=== PATIENT | female | born 1975 | race Caucasian/White ===

== ENCOUNTER 2016-12-12 13:50 | Emergency (ER) | payer BC ==
[~2016-12-12] VITALS: Ht 165.1 cm; Wt 43.2 kg
[~2016-12-12 13:50] MED LIST: CITA10TA49 PO; CYAN1TAB46 PO; DOXY-124 PO; LORA-358 PO; MULTIVITAMIN IV; PANT40TA25 PO; [UNRECOGNIZED DRUG - OTHER] IV
[2016-12-12 13:52] VITALS: TEMP 98.8; Ht 165.1 cm; Wt 43.2 kg
--- OUTSIDE RECORDS SUMMARY | 2016-12-12 13:55 | XMS REPORT | Referral Summary ---
Author Author [facility] Organization [facility] Address Unknown Phone Unavailable Care Team Providers Care Tongsman Name Role Phone Ninfa Campos Primary Care Physician [phone] Encounter VC Date(s): 07/25/16 - 07/25/16 [facility] [address] [place] [address] [place]AKR[place] Baker [id number]- Discharge Diagnosis: Ventral hernia Discharge Disposition: 01-Home or Self Care Attending Physician: Peter Martines MD Admitting Physician: Peter Martines MD Referring Physician: Anne-Marie Campos DO Vital Signs Most recent to 1 oldest [Reference Range]: Temperature Tympanic 37 degC [36.6-38.1 degC] (07/25/16 11:38 AM) Peripheral Pulse 75 bpm Rate [60-100 bpm] (07/25/16 11:38 AM) Blood Pressure 90/56 mmHg [90-140/60-90 mmHg] (07/25/16 11:38 AM) SpO2 98 % (07/25/16 11:38 AM) Problem List Condition Effective Dates Status Health Status Informant Allergies(Confirmed) Active Unspecified Active sinusitis (chronic)(Confirmed) Dysphagia(Confirmed) 2013 Active 1 GERD Active (gastroesophageal reflux disease)(Confirmed) Irritable bowel Active disease(Confirmed) Kidney Active disease(Confirmed) Calculus of Active kidney(Confirmed) Pyogenic Active arthritis(Confirmed) Chicken Active pox(Confirmed) 1EGD with biopsies/insertion of power port-2013 Allergies, Adverse Reactions, Alerts Substance Reaction Severity Status ciprofloxacin Active Ciprofloxacin Active Hydrochloride mirtazapine Active Sertraline Hydrochloride Active sulfamethoxazole hives Active trimethoprim hives Active Medications albuterol 2.5 mg/3 mL (0.083%) inhalation solution 2.5 mg 3 mL, Inhalation, q6hr, as needed for wheezing, # 25 Each, 0 Refill(s), Pharmacy: [facility] #[id number], 3 mL Inhalation q6hr,PRN:as needed for wheezing Start Date: 03/16/16 Status: Ordered Diflucan 150 mg oral tablet 150 mg 1 tabs, Oral, Once Start Date: 05/29/16 Status: Ordered loratadine 10 mg oral tablet 10 mg 1 tabs, Oral, Daily, as needed for allergy symptoms, 0 Refill(s) Start Date: 10/11/14 Status: Ordered Minocin 100 mg oral capsule See Instructions, 1 caps Oral three times a week Start Date: 07/24/16 Status: Ordered pantoprazole 40 mg oral delayed release tablet 40 mg 1 tabs, Oral, Daily Start Date: 07/24/16 Status: Ordered Vitamin B12 500 mcg tablet once daily Start Date: 07/24/16 Status: Ordered vitamin infusion vitamin infusion, Monthly iv infusions, 0 Refill(s) Start Date: 03/16/16 Status: Ordered Results No data available for this section Immunizations Vaccine Date Refusal Reason tetanus/diphth/pertuss (Tdap) adult/adol 10/30/07 Procedures Procedure Date Related Diagnosis Body Site EGD with biopsies/insertion of power port1 09/25/13 Insertion of [id number]-o-sgif3 09/25/13 Colonoscopy 2010 Left Renal Lithotripsy 09/28/09 Bilateral tubal ligation 2009 EGD 2009 Cholecystectomy 2007 L RF INJURY 2004 section3 1997 Cystoscopy/Lazer Vaporization Gall Bladder 1PER HX for Dysphagia, poorperipheral iv access 2needing TPN, poor venous access 3and 2009 Social History Social History Type Response Smoking Status Never smoker Assessment and Plan Extracted from: Title: Ambulatory Patient Education Author: Peter Martines MD Date: Bariatrics Ventral Hernia A ventral hernia (also called an incisional hernia) is a hernia that occurs at the site of a previous surgical cut (incision) in the abdomen. The abdominal wall spans from your lower chest down to your pelvis. If the abdominal wall is weakened from a surgical incision, a hernia can occur. A hernia is a bulge of bowel or muscle tissue pushing out on the weakened part of the abdominal wall. Ventral hernias can get bigger from straining or lifting. Obese and older people are at higher risk for a ventral hernia. People who develop infections after surgery or require repeat incisions at the same site on the abdomen are also at increased risk. CAUSES A ventral hernia occurs because of weakness in the abdominal wall at an incision site. SYMPTOMS Common symptoms include: A visible bulge or lump on the abdominal wall. Pain or tenderness around the lump. Increased discomfort if you cough or make a sudden movement. If the hernia has blocked part of the intestine, a serious complication can occur (incarcerated or strangulated hernia). This can become a problem that requires emergency surgery because the blood flow to the blocked intestine may be cut off. Symptoms may include: Feeling sick to your stomach (nauseous). Throwing up (vomiting). Stomach swelling (distention) or bloating. Fever. Rapid heartbeat. DIAGNOSIS Your health care provider will take a medical history and perform a physical exam. Various tests may be ordered, such as: Blood tests. Urine tests. Ultrasonography. X-rays. Computed tomography (CT). TREATMENT Watchful waiting may be all that is needed for a smaller hernia that does not cause symptoms. Your health care provider may recommend the use of a supportive belt (truss) that helps to keep the abdominal wall intact. For larger hernias or those that cause pain, surgery to repair the hernia is usually recommended. If a hernia becomes strangulated, emergency surgery needs to be done right away. HOME CARE INSTRUCTIONS Avoid putting pressure or strain on the abdominal area. Avoid heavy lifting. Use good body positioning for physical tasks. Ask your health care provider about proper body positioning. Use a supportive belt as directed by your health care provider. Maintain a healthy weight. Eat foods that are high in fiber, such as whole grains, fruits, and vegetables. Fiber helps prevent difficult bowel movements (constipation). Drink enough fluids to keep your urine clear or pale yellow. Follow up with your health care provider as directed. SEEK MEDICAL CARE IF: Your hernia seems to be getting larger or more painful. SEEK IMMEDIATE MEDICAL CARE IF: You have abdominal pain that is sudden and sharp. Your pain becomes severe. You have repeated vomiting. You are sweating a lot. You notice a rapid heartbeat. You develop a fever. MAKE SURE YOU: Understand these instructions. Will watch your condition. Will get help right away if you are not doing well or get worse. This information is not intended to replace advice given to you by your health care provider. Make sure you discuss any questions you have with your health care provider. Document Released: 08/12/2013 Document Revised: 09/16/2015 Document Reviewed: [employer] Interactive Patient Education 2016 [employer] No follow up information was provided. Extracted from: Title: Office Visit Note Author: Peter Martines MD Date: 07/25/16 Assessment/Plan 1.Ventral hernia Ordered: Office Visit Level 4 Est 15016 Plan: Patient Given Option of Diagnostic Laparoscopy Versus Continued Observation. Patient Wishes toe to Continue toFollow from Clinical Standpoint. If Reported Ventral Hernia Becomes More Noticeable/Problematic Patient toReturn to Office for Further Evaluation. I did review the patient's chartincludingprior EGD and placement of PowerPort catheterfrom September 25, 2013. Reviewed office note from patient's PCP fromMay 29, 2016. I informed the patient that from a physical examination standpointI was unable to appreciate any evidence for a fascial defect/hernia. I informed the patient that I have had a fewpatients have a very smallhernia/fascial defectthat wasn't able to be appreciated initially upon examination. I informedthe patient that as thin as she Jan would think that if she had a small fascial defect it would benoticeable. Nonetheless herreported clinical history is quite classic fora hernia. I informed the patient that I felt that we had a few options. One option would be to proceed with diagnostic laparoscopy and evaluate heranterior abdominal wall if indeed a small fascial defect is noted than proceed withrepair at that time. The other option is tofollow her from a clinical standpoint and if this hernia began to "pop out more frequently",cause her an element of increasing discomfortthat she should return to the office for further evaluation at that time. Patient opted for continued observation at this time.
--- OUTSIDE RECORDS SUMMARY | 2016-12-12 13:55 | XMS REPORT | Continuity of Care Document ---
Author Author Bina Malloy MD Organization Ambulatory Address [address] [place] [address] [facility] RAMAKRISHNA Butler [address] Phone Care Team Providers Care Motor And Chassis Inspector Name Role Phone Bina Malloy PP Unavailable Payers Payer name Insurance type Covered libertarian ID Authorization(s) Unknown Problems Condition Effective Dates (start - stop) Clinical Status Malnutrition - *Chronic Constipation - *Chronic Abnormal laboratory test - Myalgia and myositis, unspecified - *Chronic Loss of weight - *Chronic Other abnormal clinical findings - Asymptomatic Malnutrition - *Chronic Dehydration - *Chronic Depression - *Chronic Abdominal pain, generalized - *Chronic Pain in joint, site unspecified - *Chronic Conjunctivitis, unspecified - *Acute Malnourished - *Chronic Sinusitis, Acute - *Chronic CHRONIC SINUSITIS NOS - CALCULUS OF KIDNEY - Sinusitis, Acute - *Acute Cough - *Acute Myalgia - *Chronic B12 deficiency - *Chronic Irritable bowel syndrome - *Chronic Autoimmune disease, not elsewhere classified - *Chronic Preventive measure - *Routine Depression - *Acute Nausea - *Chronic Diarrhea - *Acute Family History Family Member Diagnosis Age At Onset Status Maternal grandmother (Unknown) Anemia Yes Father (Unknown) Congestive heart failure Yes Paternal grandfather (Unknown) Cancer - leukemia Yes Brother (Unknown) Anemia Yes Maternal grandmother (Unknown) CAD Yes Sister (Unknown) Psoriasis Yes Father (Unknown) Diabetes Yes Paternal grandmother (Unknown) autoimmune Yes Father (Unknown) CVA (Stroke) Yes Father (Unknown) Hypertension Yes Brother (Unknown) Hyperlipidemia Yes Father (Unknown) Psoriasis Yes Mother (Unknown) Anemia Yes Paternal grandmother (Unknown) CAD Yes Father (Unknown) Hyperlipidemia Yes Sister (Unknown) Anemia Yes Brother (Unknown) Hypertension Yes Family h/o (Unknown) CAD Yes Paternal grandmother (Unknown) CVA (Stroke) Yes Paternal grandmother (Unknown) Congestive heart failure Yes Father (Unknown) autoimmune Yes Social History Social History Element Description Quantity Unknown Allergies, Adverse Reactions, Alerts Substance Reaction Severity Status SULFAMETHOXAZOLE hives Unknown TRIMETHOPRIM hives Unknown CIPROFLOXACIN HCL Unknown MIRTAZAPINE Unknown CIPROFLOXACIN Unknown SERTRALINE HCL Unknown Medications Medication Instructions Dosage Effective Dates (start - stop) Status loratadine 10 mg tablet take 1 tablet (10MG) by oral route as needed May - Active Celexa 10 mg tablet take 1 tablet (10MG) by oral route every day 10 MG Sep - Active Immunizations Vaccine Date Status Comments Unknown Results Test Name Date and Time Measure Units Reference Range Abnormal Flag Comments Panel Description: CBC WBC 10:58:00 4.7 1000/cmm 5.0-10.0 L RBC 10:58:00 3.92 mil/cmm 3.70-5.20 HGB 10:58:00 11.4 g/dL 12.0-16.0 L HCT 10:58:00 34.7 % 37.0-47.0 L MCV 10:58:00 88.5 fL 80.0-96.0 MCH 10:58:00 29.1 pg 26.0-34.0 MCHC 10:58:00 32.9 g/dL 32.0-36.0 RDW 10:58:00 12.7 % 0.0-14.5 PLT 10:58:00 179 1000/cmm 150-400 SEG 10:58:00 58 % 50-70 LYMPH 10:58:00 27 % 20-40 MONO 10:58:00 9 % 4-8 H EOSIN 10:58:00 5 % <6 BASO 10:58:00 0 % <2 Vital Signs Date / Time: Height Weight Pulse Rate Blood Pressure Temperature /10:11:00 64.50 in 95.40 lbs 68 /min 98/60 mm[Hg] 96.3 F Procedures Procedure Date Unknown Encounters Encounter Location Date Patient Visit [facility] Patient Visit [facility] Patient Visit [facility] Patient Visit [facility] Patient Visit [facility] Patient Visit [facility] Patient Visit [facility] Patient Visit [facility] Patient Visit [facility] Patient Visit [facility] Patient Visit [facility] Advance Directives Directive Effective Date Unknown
--- OUTSIDE RECORDS SUMMARY | 2016-12-12 13:55 | XMS REPORT | Continuity of Care Document ---
Author Author [facility] Organization [facility] Address Unknown Phone Unavailable Care Team Providers Care Payroll Tax Specialist Name Role Phone Primary Care Physician Unavailable Source Comments Some departments are not documenting in the electronic medical record. If you do not see the information that you expected, contact Release of Information in the Health Information Management department at [phone] for further assistance in locating additional records.[facility] Active Allergies and Adverse Reactions Allergen Noted Date Severity Reactions Comments Bactrim 03/25/2012 HIVES Floxin 03/25/2012 NAUSEA AND VOMITING Current Medications Prescription Sig. Disp. Refills Start End Date Status Date pantoprazole DR Take 40 mg by mouth Active (PROTONIX) 40 mg tablet daily. ibuprofen (MOTRIN) 200 mg Take 400 mg by mouth Active tablet every 6 hours as needed. Active Problems Problem Noted Date Fatigue 04/07/2012 Weight loss 04/07/2012 Diarrhea 04/07/2012 Speech abnormality 04/07/2012 Elevated blood protein 04/07/2012 Social History Tobacco Use Types Packs/Day Years Used Date Never Smoker Smokeless Tobacco: Never Used Last Filed Vital Signs Vital Sign Reading Time Taken Blood Pressure 95/63 03/25/2012 8:41 AM CDT Pulse 72 03/25/2012 8:41 AM CDT Temperature 36.5 C (97.7 F) 03/25/2012 8:41 AM CDT Respiratory Rate 16 03/25/2012 8:41 AM CDT Height 1.626 m (5' 4") 03/25/2012 8:41 AM CDT Weight 43.727 kg (96 lb 6.4 oz) 03/25/2012 8:41 AM CDT Body Mass Index 16.54 03/25/2012 8:41 AM CDT Oxygen Saturation - - Plan of Care Health Maintenance Due Date Last Done Comments Physical (Comprehensive) 01/07/1980 Exam Pertussis Vaccine 01/07/1984 Tetanus Vaccine 1990 Cervical Cancer Screening 1994 Breast Cancer Screening 2013 Influenza Vaccine 05/10/2017 Results from Last 3 Months Not on file
--- OUTSIDE RECORDS SUMMARY | 2016-12-12 13:55 | XMS REPORT | Referral Summary ---
Author Author [facility], [facility] Care Organization [facility] Address Unknown Phone Unavailable Care Team Providers Care Die Maker Trim Name Role Phone Ninfa Campos Primary Care Physician [phone] Encounter Date(s): 03/16/16 - 03/16/16 [facility], [address] [place] [id number]- Discharge Diagnosis: Acute pansinusitis Discharge Diagnosis: Bronchitis Discharge Disposition: 01-Home or Self Care Attending Physician: Jelani Blake PA-C Admitting Physician: Jelani Blake PA-C Vital Signs Most recent to 1 oldest [Reference Range]: Peripheral Pulse 88 bpm Rate [60-100 bpm] (03/16/16 3:09 PM) Respiratory Rate 18 br/min [14-20 br/min] (03/16/16 3:09 PM) Blood Pressure 102/76 mmHg [90-140/60-90 mmHg] (03/16/16 3:09 PM) SpO2 100 % (03/16/16 3:09 PM) Problem List Condition Effective Dates Status Health Status Informant Allergies(Confirmed) Active Unspecified Active sinusitis (chronic)(Confirmed) Dysphagia(Confirmed) 2013 Active 1 GERD Active (gastroesophageal reflux disease)(Confirmed) Irritable bowel Active disease(Confirmed) Kidney Active disease(Confirmed) Calculus of Active kidney(Confirmed) Pyogenic Active arthritis(Confirmed) Chicken Active pox(Confirmed) 1EGD with biopsies/insertion of power port-2014 Allergies, Adverse Reactions, Alerts Substance Reaction Severity Status ciprofloxacin Active Ciprofloxacin Active Hydrochloride mirtazapine Active Sertraline Hydrochloride Active sulfamethoxazole hives Active trimethoprim hives Active Medications albuterol 2.5 mg/3 mL (0.083%) inhalation solution 2.5 mg 3 mL, Inhalation, q6hr, as needed for wheezing, # 25 Each, 0 Refill(s), Pharmacy: [facility] #[id number], 3 mL Inhalation q6hr,PRN:as needed for wheezing Start Date: 03/16/16 Status: Ordered Augmentin 875 mg-125 mg oral tablet 1 tabs, Oral, q12hr, X 10 days, # 20 tabs, 0 Refill(s), Pharmacy: [facility] #[id number] Start Date: 03/16/16 Stop Date: 03/26/16 Status: Ordered ibuprofen 0 Refill(s) Start Date: 03/16/16 Status: Ordered loratadine 10 mg oral tablet 1 tabs, Oral, Daily, 0 Refill(s) Start Date: 10/11/14 Status: Ordered Tylenol 325 mg oral capsule 0 Refill(s) Start Date: 03/16/16 Status: Ordered Vitamin B12 0 Refill(s) Start Date: 03/16/16 Status: Ordered vitamin infusion vitamin infusion, 0 Refill(s) Start Date: 03/16/16 Status: Ordered Results No data available for this section Immunizations Vaccine Date Refusal Reason tetanus/diphth/pertuss (Tdap) adult/adol 10/30/07 Procedures Procedure Date Related Diagnosis Body Site Left Renal Lithotripsy 09/28/09 Bilateral tubal ligation 2009 EGD 2009 Cholecystectomy 2007 L RF INJURY 2003 section Cystoscopy/Lazer Vaporization EGD with biopsies/insertion of power port1 Gall Bladder 1PER HX for Dysphagia, poorperipheral iv access Social History Social History Type Response Smoking Status Never smoker Assessment and Plan Extracted from: Title: maxillary sinusitis Author: Jelani Blake PA-C Date: 03/16/16 Assessment/Plan Acute pansinusitis Take azithromycin as prescribed Diagnosis and treatment discussed. Recommended [id number] , saline rinses and sinus washes. Patient advised to follow up with PCP in 2-3 days. Patient stable upon discharge, alert and orientated with no apparent distress, and indicated understanding of discharge instructions. Bronchitis Her primary care prescribed and a Ventolin inhaler however she was unable to pick that up be due to cost was not covered by her insurance. Patient has a nebulizer at home, Iprescribed albuterolto be used in the nebulizerevery 4 hours as needed for wheezing. Recommend supportive care. Rest. Practice good hand hygiene. Increase fluids. Patient was given a handout of [id number] medications that were recommended for the patient. Tylenol/ Ibuprofen as needed for fever or pain. FU with PCP if not improving, worsening symptoms, or as needed. Questions were answered. Patient verbalized understanding. Patient left in stable condition. Ordered: albuterol, 2.5 mg, Inhalation, Once, First Dose: 03/16/16 16:00:00 CDT, Stop Date: 03/16/16 16:00:00 CDT Orders: albuterol, 2.5 mg 3 mL, Inhalation, q6hr, as needed for wheezing, # 25 Each, 0 Refill(s), Pharmacy: [facility] #[id number], 3 mL Inhalation q6hr, PRN:as needed for wheezing amoxicillin-clavulanate, 1 tabs, Oral, q12hr, X 10 days, # 20 tabs, 0 Refill(s ), Pharmacy: [facility] #[id number]
--- OUTSIDE RECORDS SUMMARY | 2016-12-12 13:55 | XMS REPORT | Continuity of Care Document ---
Author Author [facility] Organization [facility] Address Unknown Phone Unavailable Allergies Medications Problems Procedures Results Encounters ACCT No. Visit Date/Time Discharge Status Pt. Type Provider Facility Loc./Unit Complaint [id number] 09/29/2013 10:03:00 09/29/2013 23 :59:59 CLS Outpatient
[2016-12-12] MEDS ORDERED: NORMAL SALINE 1,000 ML IV ONE (14:02)
--- OUTSIDE RECORDS SUMMARY | 2016-12-12 14:09 | XMS REPORT | Continuity of Care Document ---
Author Author [facility] Organization [facility] Address Unknown Phone Unavailable Allergies Medications Problems Procedures Results Encounters ACCT No. Visit Date/Time Discharge Status Pt. Type Provider Facility Loc./Unit Complaint [id number] 09/29/2013 10:03:00 09/29/2013 23 :59:59 CLS Outpatient
--- OUTSIDE RECORDS SUMMARY | 2016-12-12 14:09 | XMS REPORT | Continuity of Care Document ---
Author Author [facility] Organization [facility] Address Unknown Phone Unavailable Care Team Providers Care Quality Control Systems Manager Name Role Phone Primary Care Physician Unavailable Source Comments Some departments are not documenting in the electronic medical record. If you do not see the information that you expected, contact Release of Information in the Health Information Management department at [phone] for further assistance in locating additional records.[facility] Active Allergies and Adverse Reactions Allergen Noted [...]
--- NOTE | 2016-12-12 14:16 | DI ---
Indication: ITS.REASON: speech deficit -- stuttering, expressive dyspahsia PROCEDURE: CT HEAD W/O CONTRAST: Encounter: Initial Comparison: None Technique: Axial CT images through the head were performed without contrast. Iterative Reconstruction dose reducing technique was utilized. FINDINGS: The ventricles are of normal size, shape, and configuration for the patient's age. There is no evidence of acute intracranial hemorrhage, midline displacement, or mass effect. The CT attenuation of the brain parenchyma is normal within the cerebellum, brain stem, and cerebral hemispheres. The tympanic cavities and mastoid air cells are free of appreciable disease. There are no definite fractures of the skull base, calvarium, or visualized portion of the midface. IMPRESSION: No CT evidence of acute intracranial abnormality. .
--- NOTE | 2016-12-12 14:28 | ERPDOC ---
Departure Disposition Decision Date: Dec 12, 2016 Disposition Decision Time: 15:50 Disposition: 01 DISCHARGED HOME, SELF-CARE Impression Impression Impression: Primary Impression: Speech abnormality Speech disturbance type: dysarthria Qualified Codes: R47.1 - Dysarthria and anarthria Additional Impression: Headache Headache type: other complicated headache syndrome Qualified Codes: G44.59 - Other complicated headache syndrome Severity: Moderate Condition: Stable Seen By: Physician only Referrals: EDILSON CASTRO MD 1 Week Patient Instructions: Migraine Headache (ED) Problems/Meds/Labs Reviewed?: Yes Medications reviewed and manag: Yes Additional Instructions: Home to rest. Take Medrol-Dosepak as ordered. The most common cause of your symptoms given that you have a headache with this is a form of complicated migraine. Dr Castro recommends using steroids to decrease any intracranial inflammation that would cause swelling and pressure on the speech center. If you are not improving in 48 hours ( before Saturday night and the weekend starts) , call his office and they will get you in to see him. Try to get adequate sleep and push fluids. May take Tylenol or Aleve or Ibuprofen as needed for headache. Departure Forms: Return to Work/School Permit Return to Work/School Date: Dec 14, 2016 Follow up care ordered?: Yes Mental Status: Alert, Oriented Scripts Methylprednisolone (Methylprednisolone) 4 Mg Tablet 1 PACK PO DAILY, #1 PACK 0 Refills take as directed on package, with tapering dose Prov: JENNA CANNON MD 12/12/16 HPI - CVA/Neuro General Chief Complaint: Neuro Symptoms/Deficits Stated Complaint: SPEECH IS SLURRY, DOES NOT FEEL RIGHT,HEADACHE Time Seen by Provider: 13:57 Source: patient, RN notes reviewed, old records Exam Limitations: no limitations Onset of Symptoms Onset of Symptoms Date: Dec 12, 2016 Date/Time of Symptoms UNK: NO Date Last Known Well: Dec 12, 2016 Time Last Known Well: 07:00 Last Known Well Approximated: Yes HPI - CVA/NEURO Initial Comments This patient comes into the ER to get a CT. She got up this morning and didn't feel right. She developed a bitemporal headache -- a type of headache that is not unusual for her. 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 She suddenly started stuttering when she tried to talk and then also noted that she was having trouble forming the words and getting them out. She has never had anything exactly like this before. However she did have some neurological problems in the pas and had a brief period of aphasia which she saw Dr Castro for. He did an EEG on 04/23/12 which we have on our records that showed an area of "left temporal dysfunction." That time she said the aphasia seemed to go away on its own. She denies having any increase in anxiety at this time.She called her PCPs office and was referred to the ER for a CT. She is not having any nausea with this headache or visual symptoms. She does not want anything for this headache that would be sedating due to having to drive herself home. Occurred At: work Onset/Timing: Rapid Duration: 1-3 hrs Pain/Severity Scale: Now: 11/16 Associated Symptoms: slurred speech Hx of Similar Symptoms: Yes Affected Areas/Deficit Locatio: Speech Allergies: Coded Allergies: sulfamethoxazole (Verified Allergy, Intermediate, HIVES, 12/12/16) trimethoprim (Verified Allergy, Intermediate, HIVES, 12/12/16) mirtazapine (Verified Allergy, Unknown, 12/12/16) sertraline (Verified Allergy, Unknown, 12/12/16) ofloxacin (Verified Adverse Reaction, Intermediate, VOMIT, 12/12/16) Past History Past Medical History Metabolic: other (weight loss/inability to keep weight up without IV infusions) ENMT: sinusitis GI: GERD, other Female: UTI, kidney stones, other Neurological: headaches Surgical History General: gallbladder, other Reproductive/: , tubal ligation Vaccines Hx Influenza Vaccination: No Hx Pneumococcal Vaccination: No Social History Smoking Status: Never smoker Substance Use Type: does not use Alcohol Intake: none Marital Status: Current Occupational Status: employed Record Review Pertinent history updated: Yes Review of Systems Constitutional Constitutional: fatigue, weakness (gneralized feeling of malaise/weak/fatigue) Eyes General: DENIES: pain Lids/Accessories: DENIES: erythema Vision: DENIES: blurring ENMT Ears: DENIES: pain Hearing: DENIES: hearing loss Balance: DENIES: vertigo Sinuses: DENIES: congestion, rhinorrhea Mouth/Throat: DENIES: sore throat Teeth: DENIES: pain Cardiovascular Cardiac: DENIES: chest pain Rhythm/Rate: DENIES: palpitations Vascular: DENIES: pedal edema, unilateral swelling Pulmonary Respiratory: DENIES: cough, dyspnea, sputum GI Upper Abdomen: DENIES: heartburn/indigestion, nausea, vomiting Lower Abdomen: DENIES: blood in stool, constipation, diarrhea General: DENIES: dysuria, hematuria Female: DENIES: vaginal discharge Musculoskeletal General: DENIES: joint pain, pain Integumentary Skin: DENIES: itching, rash Neurological General: dysarthria, headache, see HPI Psychiatric Psychiatric: DENIES: anxiety, depression Endocrine Endocrine: DENIES: heat/cold intolerance Hematologic/Lymphatic Hematologic/Lymphatic: DENIES: anemia, easy bruising Allergic/Immunological Allergic/Immunoligical: DENIES: hives All other Systems All Other Systems: Reviewed and Negative Physical Exam General General Nourishment: well nourished, well developed, appears stated age, no acute distress, thin General Body Habitus: well groomed Vitals and Pain First Documented Vital Signs Date Time Temp Pulse Resp B/P Pulse Ox O2 Delivery O2 Flow Rate FiO2 12/12/16 13:52 98.8 115 16 137/80 97 Room Air Weight: Kilograms: 43.200 Height (feet): 5 Height (inches): 5.00 Triage Pain Scale: RN VS reviewed by Provider: Yes Normal Exams: Head: Normocephalic w/o trauma Eyes: Pupils are PERRLA w/ EOMI, No scleral icterus, irritation, or foreign bodies noted ENMT: No facial trauma, nasal exudates, pharyngeal erythema, or exudates are noted Neck: Full range of motion, without adenopathy, JVD, bruits or thyromegaly Chest/Resp: Clear all roque, with good airflow, and symmetry bilaterally CV: Regular rate and rhythm, without murmur or gallop, Pulses 2+ all extremities, capillary refill, <2 seconds all ext., no pedal edema noted Abdomen: Bowel sounds positive, soft, non-tender, non-distended, no hepatosplenomegaly, masses or bruits noted Musculoskeletal: No tenderness, or deformity noted, good range of motion, all extremities Integumentary: No rashes, hives, or bruising noted, hair and nails, without abnormality Neurologic: Patient is alert, and oriented, cranial nerves, motor/sensory/ cerebellar, exams w/o gross deficits, to observation Psychiatric: Patient exhibits, appropriate attention, emotion and affect Neurologic (brief) Comments stuttering, but intelligible speech with some word searching Psychiatric (brief) Comments tearful Differential Diagnoses Considering: Thrombotic CVA, Hemorrhagic CVA, Delirium, Encephalitis, Other ( other encephalopathy, anxiety attack) Progress Results/Orders Orders Procedure Category Date Status Time Ct Head W/O Contrast CT 12/12/16 Resulted Iv Lock (Ed Only) EDM 12/12/16 Transmitted 14:02 Bgm (Ed) EDM 12/12/16 Transmitted 14:02 Nothing By Mouth (Ed EDM 12/12/16 Transmitted Only) 14:02 Cbc W/Auto LAB 12/12/16 Complete Diff-Reflex Manual 14:02 Cmp - Comprehensive LAB 12/12/16 Complete Metabolic 14:02 Troponin I W LAB 12/12/16 Complete Hemolysis Index 14:02 INR LAB 12/12/16 Complete 14:02 PTT LAB 12/12/16 Complete 14:02 EKG EKG 12/12/16 Taken 14:02 Nih Stroke Scale [facility] 12/12/16 Complete 14:02 Normal Saline (Normal PHA 12/12/16 Complete Saline Iv) 14:02 Elevate Hob [facility] 12/12/16 Complete 14:02 Measure Vital Signs [facility] 12/12/16 Complete 14:02 Lorazepam (Ativan) PHA 12/12/16 Complete 14:45 Ketorolac (Toradol) PHA 12/12/16 Complete 14:45 Dexamethasone Inj PHA 12/12/16 Complete (Decadron) 16:00 Lab Results Laboratory Tests Test 12/12/16 13:58 12/12/16 14:26 Glucometer 94mg/dL White Blood Count 7.2T/MM3 Red Blood Count 4.39M/MM3 Hemoglobin 12.8GM/DL Hematocrit 39.1% Mean Corpuscular Volume 89.1UM3 Mean Corpuscular Hemoglobin 29.2UUG Mean Corpuscular Hemoglobin Concent 32.7GM/DL RDW Standard Deviation 40.1FL Platelet Count 208T/MM3 Mean Platelet Volume 11.6UM3 Immature Granulocyte % (Auto) 0.1% Neutrophils (%) (Auto) 62.2% Lymphocytes (%) (Auto) 28.3% Monocytes (%) (Auto) 8.4% Eosinophils (%) (Auto) 0.3% Basophils (%) (Auto) 0.7% Absolute Immature Granulocyte (auto 0.01T/MM3 Absolute Neutrophils (auto) 4.5T/MM3 Absolute Lymphocytes (auto) 2.0T/MM3 Absolute Monocytes (auto) 0.6T/MM3 Absolute Eosinophils (auto) 0.0T/MM3 Absolute Basophils (auto) 0.1T/MM3 Prothromb Time International Ratio 1.12 Activated Partial Thromboplast Time 34.8SEC Turbidity < 20 Sodium Level 147MEQ/L Potassium Level 4.0MEQ/L Chloride Level 107MEQ/L Carbon Dioxide Level 26MEQ/L Anion Gap 14MEQ/L Blood Urea Nitrogen 15.0MG/DL Creatinine 0.7MG/DL Glomerular Filtration Rate Calc 91 BUN/Creatinine Ratio 21RATIO Glucose Level 105MG/DL Calculated Osmolality 283MOSM/KG Calcium Level 9.9MG/DL Total Bilirubin 0.90MG/DL Icterus Index < 2 Aspartate Amino Transf (AST/SGOT) 25U/L Alanine Aminotransferase (ALT/SGPT) 22U/L Alkaline Phosphatase 45U/L Troponin I < 0.012ng/ml Total Protein 7.6G/DL Albumin 4.5G/DL Globulin 3.1G/DL Albumin/Globulin Ratio 1.5RATIO Chemistry Specimen Hemolysis < 15 Medications Current ED Medications Sodium Chloride (Normal Saline IV) 1,000 ml @ 0 mls/hr Q0M ONCE IV Last administered on 12/12/16 14:36; Start 12/12/16 at 14:02; Stop 12/12/16 at 14:04; Status DC Lorazepam (Ativan) 1 mg O ONCE IV ; Start 12/12/16 at 14:45; Stop 12/12/16 at 14: 46; Status DC Ketorolac Tromethamine (Toradol) 30 mg O ONCE IV Last administered on 14:49; Start 12/12/16 at 14:45; Stop 12/12/16 at 14:46; Status DC Dexamethasone Sodium Phosphate (Decadron) 4 mg O ONCE IV Last administered on 12/12/16 16:07; Start 12/12/16 at 16:00; Stop 12/12/16 at 16:01; Status DC Progress Progress This patient comes to the ER to rule out a stroke. She was at work this morning and started experiencing difficulty speaking with stuttering and expressive difficulty. After IV fluids and Toradol for headache she remains pretty much unchanged neurologically. Contacted her neurologist who suggests parenteral and oral steroids with close follow up with his office. He states most likely this is a complicated migraine since she has a headache accompanying these symptoms. He reviewed his previous EEG report. EKG EKG : Rate: 60-100 Rhythm: sinus [place]: normal Intervals: normal ST/T: normal Interpreted by: signing physician EKG Comments no prior EKG to compare Consult/PCP Consult/PCP : Type of discussion: Phone Consult/PCP Discussion Details 1550 -- Dr Castro -- discussed symptoms and exam, CT results, clinical response in ER. He requests that we give her IV Decadron and then send home with Medrol Dosepak. CT Date CT Interpreted for [place]: Dec 12, 2016 CT : CT: Head no contrast Interpretation: Normal, Reviewed Written Report JENNA CANNON MD Dec 12, 2016 14:28
[2016-12-12 14:36] LABS: BASOPHILS # (AUTO) 0.1 T/MM3 (0-0.2); BASOPHILS % (AUTO) 0.7 % (0-2); EOSINOPHILS % (AUTO) 0.3 % (0-4); HCT - HEMATOCRIT 39.1 % (36-46); HGB - HEMOGLOBIN 12.8 GM/DL (12-16); IMMATURE GRANULOCYTE # (AUTO) 0.01 T/MM3 (0.00-0.03); IMMATURE GRANULOCYTE % (AUTO) 0.1 % (0.0-0.5); LYMPHOCYTES % (AUTO) 28.3 % (23-45); MEAN CORPUSCULAR HGB 29.2 UUG (26-34); MEAN CORPUSCULAR HGB CONC(MCHC 32.7 GM/DL (31-37); MEAN CORPUSCULAR VOLUME 89.1 UM3 (80-100); MEAN PLATELET VOLUME 11.6 UM3 (9.4-12.4); MONOCYTES # (AUTO) 0.6 T/MM3 (0-0.8); MONOCYTES % (AUTO) 8.4 % (0-9.0); NEUTROPHILS #(AUTO)-ABSOLUTE 4.5 T/MM3 (1.8-7.7); NEUTROPHILS % (AUTO) 62.2 % (33-66); RED BLOOD COUNT 4.39 M/MM3 (4.00-5.20); WBC - WHITE BLOOD COUNT 7.2 T/MM3 (4.5-11.0)
[2016-12-12 14:38] LABS: INR 1.12 (0.76-1.04); PROTHROMBIN TIME 12.2 SEC (9.31-12.49); PTT 34.8 SEC (24-36)
[2016-12-12] MEDS ORDERED: MVI,10VI4 IV (14:40)
[2016-12-12] MEDS ORDERED: MINO100C43 PO (14:40)
[2016-12-12] MEDS ORDERED: ALBU2.5V7 INH (14:40)
[2016-12-12 14:41] LABS: ALBUMIN 4.5 G/DL (3.5-5.0); ALBUMIN/GLOBULIN RATIO 1.5 RATIO (1.1-2.2); ALKALINE PHOSPHATASE 45 U/L (38-126); ALT (SGPT) 22 U/L (9-52); ANION GAP 14 MEQ/L (5-15); AST (SGOT) 25 U/L (14-36); BUN/CREATININE RATIO 21 RATIO (6-26); CALCIUM 9.9 MG/DL (8.4-10.2); CHLORIDE 107 MEQ/L (98-107); CO2 - CARBON DIOXIDE 26 MEQ/L (22-30); CREATININE 0.7 MG/DL (0.7-1.2); GLOMERULAR FILTRATION RATE 91; GLUCOSE 105 MG/DL (65-110); SODIUM 147 MEQ/L (134-144); TOTAL PROTEIN 7.6 G/DL (6.3-8.2)
[2016-12-12] MEDS ORDERED: CYAN50008 PO (14:41)
[2016-12-12] MEDS ORDERED: LORAZEPAM 2 MG/ML INJECTION IV ONE (14:45)
[2016-12-12] MEDS ORDERED: KETOROLAC 30mg/ml INJECTION IV ONE (14:45)
--- NOTE | 2016-12-12 14:51 | NUR ---
PT REFUSES ATIVAN
[2016-12-12] MEDS ORDERED: DEXAMETHASONE 4mg/ml - 1ml INJECTION IV ONE (16:00)
[2016-12-12] MEDS ORDERED: METH4TAB16 PO (16:03)
[2016-12-12 16:20] VITALS: BP 107/63; PULSE 68; RESP 16; O2SAT 100
== END 2016-12-12 16:20 | disposition home or self-care (01) ==
LOC: ED 13:50
DX: R47.1 Dysarthria and anarthria (principal); G44.59 Other complicated headache syndrome; R53.1 Weakness; R53.81 Other malaise
CPT/HCPCS: 70450; 80053; 82948; 84484; 85025; 85610; 85730; 93005; 96361; 96374; 96375; 99284; J1100; J1885; J7030

== ENCOUNTER → 2016-12-25 | Outpatient (CLI) | payer BC ==
[~2016-12-25] MED LIST changes: +ALBU2.5V7 INH; -CITA10TA49 PO; -CYAN1TAB46 PO; +CYAN50008 PO; -DOXY-124 PO; +GADOBUTROL 10mMol/10ml INJECTION IV ONE; +METH4TAB16 PO; +MINO100C43 PO; -MULTIVITAMIN IV; +MVI,10VI4 IV; +SALINE FLUSH 10ml SYRINGE ONE; -[UNRECOGNIZED DRUG - OTHER] IV
--- NOTE | 2016-12-25 09:34 | DI ---
Indication: ITS.REASON: R47.01 Aphasia; G43.919 MIGRAINE PROCEDURE: MRI BRAIN W/WO CONTRAST: Encounter: Initial Comparisons: Head CT dated December 12, 2016 and brain MRI dated March 20, 2012 Technique: Multiplanar, multisequence, MR imaging of the head with and without contrast was acquired. Contrast: 4 mL of Gadavist FINDINGS: The ventricles are of normal size, shape, and contour for the patient's age. The brain stem, cerebellum, and cerebral hemispheres have a normal morphologic appearance as well as MR signal intensity on all pulse sequences. Following intravenous administration of contrast, no areas of abnormal enhancement are evident. There are no areas of restricted diffusion to suggest an acute infarct. There is no evidence of an intracranial mass lesion, intracranial hemorrhage, or hydrocephalus. The visualized portions of the orbits, calvarium, paranasal sinuses, and skull base demonstrate no significant abnormality. IMPRESSION: Unremarkable MRI of the head for the patient's age with and without contrast. .
== END ==
LOC: IMA 07:44
PROVIDERS: ATTEND Psychiatry & Neurology Neurology
DX: G43.919 Migraine, unspecified, intractable, without status migrainosus (principal); R47.01 Aphasia
CPT/HCPCS: 70553; A9585; J1642

== ENCOUNTER → 2017-01-02 | Outpatient (CLI) | payer BC ==
[~2017-01-02] MED LIST changes: -GADOBUTROL 10mMol/10ml INJECTION IV ONE; -SALINE FLUSH 10ml SYRINGE ONE
== END ==
LOC: NEU 10:02
PROVIDERS: ATTEND Psychiatry & Neurology Neurology
DX: R47.01 Aphasia (principal); R40.4 Transient alteration of awareness; R94.01 Abnormal electroencephalogram [EEG]
CPT/HCPCS: 95816